=== PATIENT | female | born 1990 | race Caucasian/White ===

== ENCOUNTER 2016-10-06 23:56 | Emergency (ER) | payer MEDICAID ==
[2016-10-07] MEDS ORDERED: SODIUM CHLORIDE 0.9% 1,000 ML ONE (02:00)
[2016-10-07] MEDS ORDERED: DIPHENHYDRAMINE 50 MG/ML VIAL ONE (02:00)
[2016-10-07] MEDS ORDERED: METOCLOPRAMIDE 10 MG/2 ML VIAL ONE (02:00)
[2016-10-07] MEDS ORDERED: KETOROLAC 30 MG/ML VIAL ONE (02:53)
== END 2016-10-07 04:16 | disposition home or self-care (01) ==
LOC: ER 23:56
DX: G44.201 Tension-type headache, unspecified, intractable (principal); S39.012A Strain of muscle, fascia and tendon of lower back, initial encounter
CPT/HCPCS: 72100; 81001; 81025; 96361; 96374; 96375